=== PATIENT | male | born 1955 | race Caucasian/White ===

== ENCOUNTER 2025-07-14 16:19 | Emergency (ER) | payer MEDICARE, OTHER ==
[~2025-07-14] VITALS: Ht 182.9 cm; Wt 92.5 kg
[2025-07-14 18:03] VITALS: BP 133/74; TEMP 98; O2SAT 91
== END 2025-07-14 18:04 | disposition home or self-care (01) ==
LOC: ER 16:30
DX: R91.1 Solitary pulmonary nodule (principal); E11.9 Type 2 diabetes mellitus without complications; E78.5 Hyperlipidemia, unspecified; F17.200 Nicotine dependence, unspecified, uncomplicated; I10 Essential (primary) hypertension; J43.9 Emphysema, unspecified; Z87.01 Personal history of pneumonia (recurrent); Z99.81 Dependence on supplemental oxygen

== ENCOUNTER 2025-07-16 12:30 | Emergency (ER) | payer MEDICARE, OTHER ==
[~2025-07-16] VITALS: Ht 185.4 cm; Wt 102.5 kg
[2025-07-16 13:08] LABS: PLATELET COUNT (AUTO) 162 K/uL (150-450); RED BLOOD CELL COUNT(AUTO) 3.90 MIL/uL (4.5-6.0); RED CELL DISTRIBUTION WIDTH 16.8 % (11.5-15.0); WHITE BLOOD COUNT (AUTO) 7.6 K/uL (4.3-11.0)
[2025-07-16 13:24] LABS: CALCIUM, SERUM 8.7 mg/dL (8.5-10.1); CREATININE 0.7 mg/dL (0.6-1.3); SODIUM SERUM 141 mmol/L (136-145); UREA NITROGEN, BLOOD 10 mg/dL (7-18)
[2025-07-16 13:32] LABS: INR 0.93 (0.91-1.10)
[2025-07-16 13:37] LABS: ASPARTATE AMINOTRANSFERASE 73 U/L (15-37); NT-PRO BNP 390 pg/mL (0-125); TOTAL PROTEIN, SERUM 7.0 g/dL (6.4-8.2)
[2025-07-16] MEDS ORDERED: FURO20TA4 PO (13:59)
[2025-07-16 15:06] VITALS: BP 148/80; TEMP 98.6; O2SAT 98
== END 2025-07-16 14:55 | disposition home or self-care (01) ==
LOC: ER 12:30
DX: R60.0 Localized edema (principal); I11.0 Hypertensive heart disease with heart failure; E11.9 Type 2 diabetes mellitus without complications; E78.5 Hyperlipidemia, unspecified; I50.9 Heart failure, unspecified; I82.402 Acute embolism and thrombosis of unspecified deep veins of left lower extremity; J43.9 Emphysema, unspecified; Z79.899 Other long term (current) drug therapy; Z87.01 Personal history of pneumonia (recurrent)
CPT/HCPCS: 36415; 71045-TC; 80048-TC; 80076-TC; 83880; 84484-TC; 85025-TC; 85730-TC; 93970-TC